=== PATIENT | male | born 1995 | race Caucasian/White ===

== ENCOUNTER 2017-09-14 00:40 | Emergency (ER) | payer SELFPAY ==
[2017-09-14] MEDS ORDERED: Fluorescein Opthalmic Strip ONE (00:57)
[2017-09-14] MEDS ORDERED: Proparacaine 0.5% Opth 15 ML BOT ONE (00:58)
[2017-09-14] MEDS ORDERED: Erythromycin Base 0.5% Ophth Oint 3.5 gm Tube ONE (01:25)
[2017-09-14] MEDS ORDERED: HYDROcodone/Acetaminophen 5/325 mg Tablet ONE (01:25)
== END 2017-09-14 01:31 | disposition home or self-care (01) ==
LOC: ERS 00:40
DX: S05.01XA Injury of conjunctiva and corneal abrasion without foreign body, right eye, initial encounter (principal); F41.9 Anxiety disorder, unspecified; F17.200 Nicotine dependence, unspecified, uncomplicated; Z71.6 Tobacco abuse counseling; X58.XXXA Exposure to other specified factors, initial encounter
CPT/HCPCS: 99406

== ENCOUNTER 2019-04-14 16:16 | Emergency (ER) | payer SELFPAY ==
[~2019-04-14 16:16] MED LIST: ISOVUE-370 76%-LOCM 1 ML ONE
[2019-04-14 16:46] LABS: #Eosinphils 0.4 thou/uL (0.0-0.7); #Lymphocytes 1.6 thou/uL (1.20-3.40); #Monocytes 0.6 thou/uL (0.11-0.59); #Neutrophils 7.5 thou/uL (1.40-6.50); %Basophils 0.1 % (0.0-1.0); %Eosinophils 4.2 % (0.0-10.0); %Lymphocytes 15.7 % (21.0-51.0); %Monocytes 6.2 % (0.0-10.0); %Neutrophils 73.8 % (42.0-75.0); Mean Corpuscular HGB CONC 36.1 g/dL (32.0-36.0); Mean Corpuscular Hemoglobin 31.3 pg (27.0-31.0); Mean Corpuscular Volume 86.7 fL (78.0-98.0); Mean Platelet Volume 6.2 fL (7.4-10.4); Platelet Count 296 thou/uL (130-400); RBC Distribution Width 11.6 % (11.5-14.5); Red Blood Cell (RBC) Count 5.13 mill/uL (4.70-6.10); White Blood Cell (WBC) Count 10.2 thou/uL (4.8-10.8)
[2019-04-14 17:04] LABS: ALT (SGPT) 44 U/L (8-55); AST (SGOT) 30 U/L (5-34); Albumin 4.8 g/dL (3.5-5.0); Alkaline Phosphatase 81 U/L (40-150); Anion Gap 16 mmol/L (10-20); BUN (Urea Nitrogen) 16 mg/dL (8.9-20.6); Bilirubin, Total 0.4 mg/dL (0.2-1.2); Calc. Creatinine Clearance 0 mL/min (70-130); Calcium 10.6 mg/dL (7.8-10.44); Carbon Dioxide 22 mmol/L (22-29); Chloride 103 mmol/L (98-107); Estimated GFR-MDRD Greater than 90; Globulin 3.6 g/dL (2.4-3.5); Glucose 76 mg/dL (70-105); Potassium 4.3 mmol/L (3.5-5.1); Protein, Total 8.4 g/dL (6.0-8.3); Sodium 137 mmol/L (136-145)
[2019-04-14] MEDS ORDERED: Clindamycin/D5W 900 mg/50 ml Premix Bag ONE (17:37)
[2019-04-14] MEDS ORDERED: Dexamethasone 10 MG/ML VIAL ONE (17:37)
[2019-04-14] MEDS ORDERED: Ketorolac Tromethamine 30 MG/ML VIAL ONE (17:37)
--- NOTE | 2019-04-14 18:09 | CT ---
CT NECK WITH CONTRAST ENHANCEMENT: HISTORY: Left tonsillar swelling with left-sided throat pain. FINDINGS: The visualized brain parenchyma is unremarkable. The parotid and submandibular glands are normal in appearance. There is some mild jugular chain adenopathy, which is all felt to be reactive. The left tonsil is enlarged with slightly lower attenuation as compared to the right. There is no ab scess collection. The parapharyngeal spaces are clear. The epiglottis is normal in appearance. The vocal cord region is unremarkable. The left lobe of the thyroid appears to be absent, which may be postoperative in nature. The lung apices are clear. IMPRESSION: Tonsillar swelling on the left side without signs of abscess formation. POS: H
== END 2019-04-14 18:53 | disposition home or self-care (01) ==
LOC: ERS 16:16
DX: J03.90 Acute tonsillitis, unspecified (principal); F41.9 Anxiety disorder, unspecified; F17.290 Nicotine dependence, other tobacco product, uncomplicated
CPT/HCPCS: 36415; 70491; 80053; 85025; 96365; 96375; J1100; J1885; J3490